=== PATIENT | female | born 1955 | race Caucasian/White ===

== ENCOUNTER 2019-12-01 08:02 | Outpatient (REF) | payer OTHER, SELFPAY ==
[2019-12-01 09:18] LABS: MANUAL DIFF FLAG NO
[2019-12-01 09:26] LABS: Basophils Percent Auto 0.4 % (0-2); Eosinophils Absolute Auto 0.1 X10*3/uL (0.0-0.4); Eosinophils Percent Auto 2.3 % (0-4); Hematocrit 36.7 % (37-47); Hemoglobin 12.4 g/dl (12.0-16.0); Imm Gran Abs Auto 0.01 X10*3/uL (0.00-0.03); Imm Gran Pct Auto 0.2 % (0.0-0.4); Lymphocytes Percent Auto 19.3 % (20-40); Mean Corpuscular HGB Conc 33.8 g/dl (31.0-35.0); Mean Corpuscular Hemoglobin 31.4 pg (27.0-33.0); Mean Corpuscular Volume 92.9 fL (80-98); Mean Platelet Volume 11.4 fL (9.4-12.3); Monocytes Absolute Auto 0.4 X10*3/uL (0.1-1.2); Monocytes Percent Auto 8.6 % (2-11); Neutrophils Absolute Auto 3.6 X10*3/uL (2.0-8.3); Neutrophils Percent Auto 69.2 % (45-73); Platelet Count 161 X10*3/uL (160-400); Red Blood Count 3.95 X10*6/uL (4.20-5.50); Red Cell Distribution Width 12.1 % (11.0-16.0); White Blood Count 5.1 X10*3/uL (4.8-10.8)
[2019-12-01 09:47] LABS: Alanine Aminotransferase 40 U/L (0-31); Albumin Level 4.1 g/dL (3.5-5.0); Alkaline Phosphatase 106 U/L (39-117); Anion Gap 11 (12-20); Aspartate Amino Transferase 27 U/L (5-31); Bilirubin Total 0.5 mg/dL (0.0-1.0); Blood Urea Nitrogen 36 mg/dL (9-16); Calcium 9.1 mg/dL (8.4-10.2); Carbon Dioxide 29 mmol/L (22-29); Chloride 104 mmol/L (96-108); Cholesterol 155 mg/dL; Estimated Glomerular Filt Rate 32; Glucose Fasting 296 mg/dL (60-99); HDL Cholesterol 35 mg/dL; LDL Cholesterol Calculated 89 mg/dl; Sodium 139 mmol/L (135-145); Total Protein 7.2 g/dL (6.5-8.0); Triglycerides 155 mg/dL
[2019-12-01 10:12] LABS: Free T4 (Free Thyroxine) 1.16 ng/dL (0.71-1.85); Thyroid Stimulating Hormone 2.72 mIU/mL (0.32-4.0); Vitamin D 25-OH Total 33.1 ng/mL (>30)
[2019-12-01 10:22] LABS: Creatinine Urine 93.53 mg/dL; Microalbum/Creatinine Ratio Ur 50.2 ug/mg cr
[2019-12-01 10:37] LABS: Glucose Urine UA 250 MG/DL (NEG); Leukocyte Esterase Urine NEG (NEG); Nitrite Urine NEG (NEG); PH 5.5 (5.0-8.0); Urine Blood NEG (NEG); Urine Ketones NEG (NEG); Urine Protein NEG (NEG-TRACE)
[2019-12-01 10:43] LABS: Appearance Urine CLEAR; Color Urine YELLOW
[2019-12-01 13:51] LABS: RBC Urine 0 /HPF (0); WBC Urine 0 /HPF (0-4)
== END 2019-12-01 08:03 | disposition home or self-care (01) ==
LOC: HO.LAB 08:02
PROVIDERS: PCP Internal Medicine; Visit Provider Internal Medicine
DX: E11.65 Type 2 diabetes mellitus with hyperglycemia (principal); E11.22 Type 2 diabetes mellitus with diabetic chronic kidney disease; I12.9 Hypertensive chronic kidney disease with stage 1 through stage 4 chronic kidney disease, or unspecified chronic kidney disease; N18.4 Chronic kidney disease, stage 4 (severe); E78.00 Pure hypercholesterolemia, unspecified; K76.0 Fatty (change of) liver, not elsewhere classified; E55.9 Vitamin D deficiency, unspecified
CPT/HCPCS: 36415; 80053; 80061; 81003; 81015; 82043; 82306; 84439; 84443; 85025

== ENCOUNTER → 2020-01-01 08:08 | Outpatient (BNVA) | payer OTHER, SELFPAY | PROVIDERS: PCP Internal Medicine; Referring Provider Internal Medicine; Visit Provider Internal Medicine | DX: E11.65 Type 2 diabetes mellitus with hyperglycemia (principal); E11.22 Type 2 diabetes mellitus with diabetic chronic kidney disease; I12.9 Hypertensive chronic kidney disease with stage 1 through stage 4 chronic kidney disease, or unspecified chronic kidney disease; N18.4 Chronic kidney disease, stage 4 (severe); E78.5 Hyperlipidemia, unspecified; I10 Essential (primary) hypertension; Z79.4 Long term (current) use of insulin | CPT/HCPCS: 99212 ==

== ENCOUNTER → 2020-01-21 09:24 | Outpatient (REF) | payer OTHER, SELFPAY ==
--- NOTE | 2020-01-21 09:30 | CA_ITS ---
Transthoracic Echocardiogram Patient (Last, First, Middle): Ann Cloud A Gender: Female Date of : 1955 Age: 64 Procedure Date: 01/21/2020 Procedure Type: Transthoracic Echocardiogram Location: OP Height: 167.64 cm Weight: 124.74 kg BSA: 2.29 m2 Heart Rate: bpm BP: 160 / 84 mmHg Day Care Assistant: Sloan MD: Fab Yeager MD Insulation Blanket Maker: Mono Peralta MD Symptoms: R06.00 - Dyspnea, unspecified Study Quality: Good ECG Rhythm: Sinus Conclusions: - 1. Normal LV systolic function with impaired relaxation filling pattern 2. Mild fibrocalcific aortic valve changes noted with normal cardiac valvular Doppler 3. No pericardial effusion Findings Left Ventricle Normal left ventricular size, thickness, and systolic function. The visually estimated ejection fraction is between 65-70%. Spectral Doppler is indicative of an impaired relaxation filling pattern. E/E prime ratio is between 8 and 15 consistent with indeterminate filling pressures. Right Ventricle Normal right ventricular cavity size and systolic function. Atria The left atrium is normal in size. There is lipomatous hypertrophy of the interatrial septum. There is a mobile atrial septum noted. There is no evidence of interatrial shunt. The right atrium is normal in size. Aortic Valve There is mild calcification of the aortic valve. There is no aortic valve stenosis. There is no aortic valve regurgitation. Mitral Valve Normal mitral valve structure and function. There is trace mitral valve regurgitation. There is no mitral valve stenosis. Pulmonic Valve The pulmonic valve is likely normal. Tricuspid Valve Normal tricuspid valve structure. Tricuspid regurgitation envelope is inadequate for calculation of right ventricular systolic pressure. Great Vessels All visible segments of the aorta are normal in size. The pulmonary artery was not well visualized. Small plaque is seen in the sino tubular ridge. Venous The inferior vena cava is normal in size and collapses greater than 50% with inspiration. Pericardium/Pleural There is no evidence of pericardial effusion. Prior Study Comparison No prior study available for comparison. Measurements 2D Linear Measurements RVIDd: 2.53 RVIDd Index: 1.10 IVSd: 0.90 0.6-0.9/0.6-1.0 cm LVIDd: 5.23 3.9-5.3/4.2-5.9 cm LVIDd Index: 2.28 2.4-3.2/2.2-3.1 cm/m2 LVIDs: 3.27 2.0-3.6 cm LVPWd: 1.11 0.7-1.1 cm Ao Root: 2.30 2.1-3.5 cm LA Diam: 4.50 2.7-3.8/3.0-4.0 cm LAIDs Index: 1.97 1.5-2.3 cm/m2 LV Mass: 245.09 67-162/88-224 g LV Mass Index: 107.03 43-95/49-115 g/m2 LVOT Diam: 2.00 3.0+(-)1.3 cm 2D Systolic Function EF 4C: 66.40 >55% EF 2C: 71.80 >55% EF BiP: 69.30 >55% Mitral Valve MV Pk E: 0.77 MV PK A: 0.98 MV Decel Time: 165.00 E/A: 0.80 E'Lateral: 8.70 E'Medial: 6.09 E/E' Med: 12.70 E/E' Lat: 8.90 Aortic Valve AoV Pk Ayden: 1.55 AoV Mn Ayden: 1.11 AoV VTI: 0.32 AoV Pk Grad: 10.00 Aov Mn Grad: 5.00 KAVEH Cont.VTI: 2.65 LVOT LVOT Pk Ayden: 1.17 LVOT Mn Ayden: 0.82 LVOT VTI: 0.27 LVOT Pk Grad: 5.00 LVOT Mn Grad: 3.00 LVOT Diam: 2.00 LVOT Area: 3.14 Diastolic Function MV Pk E: 0.77 MV Pk A: 0.98 E/A: 0.80 E'Medial: 6.09 E/E' Med: 12.70 E' Laterial: 8.70 E/E' Lat: 8.90 Tricuspid Valve RA Press: 3.00 Great Vessels Aorta Ao Root-2D: 2.30 2.0-3.7 cm Ao Asc: 2.80 2.1-3.4 cm Ao Arch: 2.50 Updated in Other Vendor System with Status of Final Mono Peralta MD electronically signed on 01/21/2020 1:00:38 PM with status of Final
--- NOTE | 2020-01-21 10:18 | XR_ITS ---
EXAMINATION: XR CHEST CLINICAL INFORMATION: Dyspnea COMPARISON: None TECHNIQUE: 2 views of the chest were obtained. FINDINGS: No significant abnormality is noted involving the heart, lungs, mediastinum, bony thorax or soft tissues. XR/XR chest 2V IMPRESSION: Unremarkable examination.
== END ==
LOC: HO.CARD 09:24
PROVIDERS: PCP Internal Medicine; Visit Provider Internal Medicine
DX: R06.00 Dyspnea, unspecified (principal)
CPT/HCPCS: 71046; 93306

== ENCOUNTER → 2020-01-29 15:32 | Outpatient (BNVA) | payer OTHER, SELFPAY | PROVIDERS: PCP Internal Medicine; Visit Provider Internal Medicine | DX: E11.65 Type 2 diabetes mellitus with hyperglycemia (principal); E11.22 Type 2 diabetes mellitus with diabetic chronic kidney disease; I12.9 Hypertensive chronic kidney disease with stage 1 through stage 4 chronic kidney disease, or unspecified chronic kidney disease; N18.4 Chronic kidney disease, stage 4 (severe); E78.5 Hyperlipidemia, unspecified; Z79.4 Long term (current) use of insulin | CPT/HCPCS: 82947; 99212 ==

== ENCOUNTER 2020-03-05 07:27 | Outpatient (REF) | payer OTHER, SELFPAY ==
[2020-03-05 08:03] LABS: Basophils Percent Auto 0.6 % (0-2); Eosinophils Absolute Auto 0.1 X10*3/uL (0.0-0.4); Eosinophils Percent Auto 1.9 % (0-4); Hematocrit 37.4 % (37-47); Hemoglobin 12.6 g/dl (12.0-16.0); Imm Gran Abs Auto 0.02 X10*3/uL (0.00-0.03); Imm Gran Pct Auto 0.3 % (0.0-0.4); Lymphocytes Absolute Auto 1.3 X10*3/uL (1.2-4.9); Lymphocytes Percent Auto 20.5 % (20-40); MANUAL DIFF FLAG NO; Mean Corpuscular HGB Conc 33.7 g/dl (31.0-35.0); Mean Corpuscular Hemoglobin 31.1 pg (27.0-33.0); Mean Corpuscular Volume 92.3 fL (80-98); Mean Platelet Volume 11.2 fL (9.4-12.3); Monocytes Absolute Auto 0.5 X10*3/uL (0.1-1.2); Monocytes Percent Auto 7.9 % (2-11); Neutrophils Absolute Auto 4.4 X10*3/uL (2.0-8.3); Neutrophils Percent Auto 68.8 % (45-73); Platelet Count 175 X10*3/uL (160-400); Red Blood Count 4.05 X10*6/uL (4.20-5.50); Red Cell Distribution Width 11.9 % (11.0-16.0); White Blood Count 6.4 X10*3/uL (4.8-10.8)
[2020-03-05 08:28] LABS: Alanine Aminotransferase 31 U/L (0-31); Alkaline Phosphatase 105 U/L (39-117); Anion Gap 11 (12-20); Aspartate Amino Transferase 24 U/L (5-31); Bilirubin Total 0.3 mg/dL (0.0-1.0); Blood Urea Nitrogen 31 mg/dL (9-16); Calcium 8.6 mg/dL (8.4-10.2); Carbon Dioxide 29 mmol/L (22-29); Chloride 103 mmol/L (96-108); Cholesterol 148 mg/dL; Estimated Glomerular Filt Rate 34; Glucose Fasting 205 mg/dL (60-99); HDL Cholesterol 40 mg/dL; LDL Cholesterol Calculated 82 mg/dl; Sodium 138 mmol/L (135-145); Total Protein 7.1 g/dL (6.5-8.0); Triglycerides 132 mg/dL
[2020-03-05 08:38] LABS: Glucose Urine UA NEG (NEG); Leukocyte Esterase Urine NEG (NEG); Nitrite Urine NEG (NEG); Urine Blood TRACE (NEG); Urine Ketones NEG (NEG); Urine Protein NEG (NEG-TRACE)
[2020-03-05 08:43] LABS: Appearance Urine CLEAR; Color Urine YELLOW
[2020-03-05 08:45] LABS: RBC Urine 0-2 /HPF (0); Squamous Epithelial Cell Urine 1+ /LPF; WBC Urine 0-2 /HPF (0-4)
[2020-03-05 08:51] LABS: Free T4 (Free Thyroxine) 1.17 ng/dL (0.71-1.85); Thyroid Stimulating Hormone 3.61 uIU/mL (0.32-4.0); Vitamin D 25-OH Total 37.9 ng/mL (>30)
[2020-03-05 09:26] LABS: Creatinine Urine 98.32 mg/dL; Microalbum/Creatinine Ratio Ur 16.2 ug/mg cr
== END 2020-03-05 07:28 | disposition home or self-care (01) ==
LOC: HO.LAB 07:27
PROVIDERS: PCP Internal Medicine; Visit Provider Internal Medicine
DX: E11.22 Type 2 diabetes mellitus with diabetic chronic kidney disease (principal); I12.9 Hypertensive chronic kidney disease with stage 1 through stage 4 chronic kidney disease, or unspecified chronic kidney disease; N18.4 Chronic kidney disease, stage 4 (severe); E03.9 Hypothyroidism, unspecified; E78.5 Hyperlipidemia, unspecified; E55.9 Vitamin D deficiency, unspecified
CPT/HCPCS: 36415; 80053; 80061; 81001; 82043; 82306; 84439; 84443; 85025

== ENCOUNTER → 2020-04-16 09:25 | Outpatient (BNVA) | payer OTHER, SELFPAY | PROVIDERS: PCP Internal Medicine; Visit Provider Dietitian, Registered ==

== ENCOUNTER 2020-04-28 07:25 | Outpatient (REF) | payer OTHER, SELFPAY ==
[2020-04-28 08:26] LABS: Estimated Average Glucose 186 mg/dL; Hemoglobin A1c % 8.1 %
[2020-04-28 08:44] LABS: Alanine Aminotransferase 26 U/L (0-31); Albumin Level 4.1 g/dL (3.5-5.0); Alkaline Phosphatase 107 U/L (39-117); Anion Gap 12 (12-20); Aspartate Amino Transferase 27 U/L (5-31); Bilirubin Total 0.6 mg/dL (0.0-1.0); Blood Urea Nitrogen 40 mg/dL (9-16); Calcium 9.4 mg/dL (8.4-10.2); Carbon Dioxide 29 mmol/L (22-29); Chloride 101 mmol/L (96-108); Cholesterol 166 mg/dL; Creatinine Urine 79.13 mg/dL; Estimated Glomerular Filt Rate 32; Glucose Random 192 mg/dL (60-115); HDL Cholesterol 41 mg/dL; LDL Cholesterol Calculated 96 mg/dl; Potassium 4.6 mmol/L (3.3-5.1); Sodium 137 mmol/L (135-145); Total Protein 7.4 g/dL (6.5-8.0); Triglycerides 146 mg/dL
[2020-04-29 06:31] LABS: LDL Cholesterol Direct 96 mg/dL (<100)
== END 2020-04-28 07:26 | disposition home or self-care (01) ==
LOC: HO.LAB 07:25
PROVIDERS: Absent Provider Internal Medicine; PCP Internal Medicine; Visit Provider Internal Medicine
DX: E11.65 Type 2 diabetes mellitus with hyperglycemia (principal); Z79.4 Long term (current) use of insulin
CPT/HCPCS: 36415; 80053; 80061; 82043; 83036; 83721

== ENCOUNTER → 2020-05-05 07:42 | Outpatient (BNVA) | payer OTHER, SELFPAY | PROVIDERS: PCP Internal Medicine; Visit Provider Nurse Practitioner Gerontology ==

== ENCOUNTER 2020-09-06 08:09 | Outpatient (REF) | payer OTHER, SELFPAY ==
[2020-09-06 08:59] LABS: MANUAL DIFF FLAG NO
[2020-09-06 09:11] LABS: Basophils Percent Auto 0.6 % (0-2); Eosinophils Absolute Auto 0.1 X10*3/uL (0.0-0.4); Eosinophils Percent Auto 1.8 % (0-4); Hematocrit 36.5 % (37-47); Hemoglobin 12.3 g/dl (12.0-16.0); Imm Gran Abs Auto 0.02 X10*3/uL (0.00-0.03); Imm Gran Pct Auto 0.3 % (0.0-0.4); Lymphocytes Absolute Auto 1.5 X10*3/uL (1.2-4.9); Lymphocytes Percent Auto 22.9 % (20-40); Mean Corpuscular HGB Conc 33.7 g/dl (31.0-35.0); Mean Corpuscular Hemoglobin 30.7 pg (27.0-33.0); Mean Platelet Volume 11.5 fL (9.4-12.3); Monocytes Absolute Auto 0.6 X10*3/uL (0.1-1.2); Monocytes Percent Auto 8.8 % (2-11); Neutrophils Absolute Auto 4.4 X10*3/uL (2.0-8.3); Neutrophils Percent Auto 65.6 % (45-73); Platelet Count 170 X10*3/uL (160-400); Red Blood Count 4.01 X10*6/uL (4.20-5.50); Red Cell Distribution Width 12.1 % (11.0-16.0); White Blood Count 6.7 X10*3/uL (4.8-10.8)
[2020-09-06 09:23] LABS: Alanine Aminotransferase 24 U/L (0-31); Alkaline Phosphatase 99 U/L (39-117); Anion Gap 15 (12-20); Aspartate Amino Transferase 27 U/L (5-31); Bilirubin Total 0.7 mg/dL (0.0-1.0); Blood Urea Nitrogen 40 mg/dL (9-16); Calcium 9.4 mg/dL (8.4-10.2); Carbon Dioxide 25 mmol/L (22-29); Chloride 104 mmol/L (96-108); Cholesterol 162 mg/dL; Estimated Glomerular Filt Rate 29; Glucose Fasting 152 mg/dL (60-99); HDL Cholesterol 38 mg/dL; LDL Cholesterol Calculated 91 mg/dl; Sodium 139 mmol/L (135-145); Total Protein 7.3 g/dL (6.5-8.0); Triglycerides 167 mg/dL
[2020-09-06 09:40] LABS: Glucose Urine UA NEG (NEG); Leukocyte Esterase Urine NEG (NEG); Nitrite Urine NEG (NEG); PH 5.5 (5.0-8.0); Specific Gravity - Urine 1.015 (1.005-1.025); Urine Blood TRACE (NEG); Urine Ketones NEG (NEG); Urine Protein NEG (NEG-TRACE)
[2020-09-06 09:42] LABS: Appearance Urine CLEAR; Color Urine YELLOW
[2020-09-06 09:47] LABS: Free T4 (Free Thyroxine) 1.09 ng/dL (0.71-1.85); Thyroid Stimulating Hormone 4.59 uIU/mL (0.32-4.0); Vitamin D 25-OH Total 30.2 ng/mL (>30)
[2020-09-06 09:53] LABS: RBC Urine 0 /HPF (0); WBC Urine 0-2 /HPF (0-4)
[2020-09-06 09:54] LABS: Bacteria Urine TRACE /LPF; Renal Epithelial Cells Urine TRACE /LPF; Squamous Epithelial Cell Urine 1+ /LPF
[2020-09-06 10:15] LABS: Creatinine Urine 78.68 mg/dL; Microalbumin Urine < 5.0 mg/L
== END 2020-09-06 08:10 | disposition home or self-care (01) ==
LOC: HO.LAB 08:09
PROVIDERS: Absent Provider Internal Medicine; PCP Internal Medicine; Visit Provider Internal Medicine
DX: I12.9 Hypertensive chronic kidney disease with stage 1 through stage 4 chronic kidney disease, or unspecified chronic kidney disease (principal); E11.22 Type 2 diabetes mellitus with diabetic chronic kidney disease; N18.4 Chronic kidney disease, stage 4 (severe); E78.00 Pure hypercholesterolemia, unspecified; E03.9 Hypothyroidism, unspecified; E55.9 Vitamin D deficiency, unspecified; E66.01 Morbid (severe) obesity due to excess calories; Z68.42 Body mass index [BMI] 45.0-49.9, adult; Z79.4 Long term (current) use of insulin
CPT/HCPCS: 36415; 80053; 80061; 81001; 82043; 82306; 84439; 84443; 85025

== ENCOUNTER → 2020-09-09 07:58 | Outpatient (BNVA) | payer OTHER, SELFPAY | PROVIDERS: PCP Internal Medicine; Visit Provider Nurse Practitioner Gerontology | DX: E11.65 Type 2 diabetes mellitus with hyperglycemia (principal); E11.22 Type 2 diabetes mellitus with diabetic chronic kidney disease; I12.9 Hypertensive chronic kidney disease with stage 1 through stage 4 chronic kidney disease, or unspecified chronic kidney disease; N18.4 Chronic kidney disease, stage 4 (severe); E78.00 Pure hypercholesterolemia, unspecified; E03.9 Hypothyroidism, unspecified; E66.01 Morbid (severe) obesity due to excess calories; Z79.4 Long term (current) use of insulin; Z68.42 Body mass index [BMI] 45.0-49.9, adult | CPT/HCPCS: 82947; 99212 ==

== ENCOUNTER 2021-01-11 07:13 | Outpatient (REF) | payer OTHER, SELFPAY ==
[2021-01-11 08:38] LABS: Free T4 (Free Thyroxine) 1.13 ng/dL (0.71-1.85); Thyroid Stimulating Hormone 4.99 uIU/mL (0.32-4.0)
[2021-01-12 21:17] LABS: Thyroglobulin Antibodies >1000 IU/mL (< or = 1); Thyroid Peroxidase Antibodies 647 IU/mL (<9)
== END 2021-01-11 07:14 | disposition home or self-care (01) ==
LOC: HO.LAB 07:13
PROVIDERS: PCP Internal Medicine; Visit Provider Nurse Practitioner Gerontology
DX: E03.9 Hypothyroidism, unspecified (principal)
CPT/HCPCS: 36415; 84439; 84443; 86376; 86800

== ENCOUNTER → 2021-01-18 13:21 | Outpatient (BNVA) | payer OTHER, SELFPAY | PROVIDERS: PCP Internal Medicine; Visit Provider Nurse Practitioner Gerontology | DX: E11.65 Type 2 diabetes mellitus with hyperglycemia (principal); E11.22 Type 2 diabetes mellitus with diabetic chronic kidney disease; I12.9 Hypertensive chronic kidney disease with stage 1 through stage 4 chronic kidney disease, or unspecified chronic kidney disease; N18.4 Chronic kidney disease, stage 4 (severe); E78.00 Pure hypercholesterolemia, unspecified; E66.01 Morbid (severe) obesity due to excess calories; E03.9 Hypothyroidism, unspecified; E06.3 Autoimmune thyroiditis; Z79.4 Long term (current) use of insulin; Z68.42 Body mass index [BMI] 45.0-49.9, adult | CPT/HCPCS: 82947; 83036 ==

== ENCOUNTER 2021-03-03 07:17 | Outpatient (REF) | payer OTHER, SELFPAY ==
[2021-03-03 08:35] LABS: Free T4 (Free Thyroxine) 1.02 ng/dL (0.71-1.85); Thyroid Stimulating Hormone 4.56 uIU/mL (0.32-4.0)
== END 2021-03-03 07:18 | disposition home or self-care (01) ==
LOC: HO.LAB 07:17
PROVIDERS: PCP Internal Medicine; Visit Provider Nurse Practitioner Gerontology
DX: E03.9 Hypothyroidism, unspecified (principal)
CPT/HCPCS: 36415; 84439; 84443

== ENCOUNTER 2021-04-20 07:18 | Outpatient (REF) | payer OTHER, SELFPAY ==
[2021-04-20 08:44] LABS: Free T4 (Free Thyroxine) 1.03 ng/dL (0.71-1.85); Thyroid Stimulating Hormone 4.55 uIU/mL (0.32-4.0)
== END 2021-04-20 07:19 | disposition home or self-care (01) ==
LOC: HO.LAB 07:18
PROVIDERS: PCP Internal Medicine; Visit Provider Nurse Practitioner Gerontology
DX: E03.9 Hypothyroidism, unspecified (principal)
CPT/HCPCS: 36415; 84439; 84443

== ENCOUNTER 2021-06-09 06:56 | Outpatient (REF) | payer OTHER, SELFPAY ==
[2021-06-09 07:08] LABS: MANUAL DIFF FLAG NO
[2021-06-09 07:31] LABS: Basophils Absolute Auto 0.1 X10*3/uL (0.0-0.2); Basophils Percent Auto 0.8 % (0-2); Eosinophils Absolute Auto 0.1 X10*3/uL (0.0-0.4); Hematocrit 35.6 % (37.0-47.0); Hemoglobin 11.8 g/dl (12.0-16.0); Imm Gran Abs Auto 0.02 X10*3/uL (0.00-0.03); Imm Gran Pct Auto 0.3 % (0.0-0.4); Lymphocytes Absolute Auto 1.4 X10*3/uL (1.2-4.9); Lymphocytes Percent Auto 21.3 % (20-40); Mean Corpuscular HGB Conc 33.1 g/dl (31.0-35.0); Mean Corpuscular Volume 93.4 fL (80.0-98.0); Mean Platelet Volume 11.7 fL (9.4-12.3); Monocytes Absolute Auto 0.6 X10*3/uL (0.1-1.2); Monocytes Percent Auto 8.6 % (2-11); Neutrophils Absolute Auto 4.3 x10*3/uL (2.0-8.3); Platelet Count 155 X10*3/uL (160-400); Red Blood Count 3.81 X10*6/uL (4.20-5.50); Red Cell Distribution Width 12.6 % (11.0-16.0); White Blood Count 6.4 X10*3/uL (4.8-10.8)
[2021-06-09 08:06] LABS: Alanine Aminotransferase 26 U/L (0-31); Albumin Level 3.9 g/dL (3.5-5.0); Alkaline Phosphatase 105 U/L (39-117); Anion Gap 14 (12-20); Aspartate Amino Transferase 27 U/L (5-31); Bilirubin Total 0.5 mg/dL (0.0-1.0); Blood Urea Nitrogen 36 mg/dL (9-16); Calcium 9.6 mg/dL (8.4-10.2); Carbon Dioxide 25 mmol/L (22-29); Chloride 105 mmol/L (96-108); Cholesterol 149 mg/dL; Estimated Glomerular Filt Rate 32; Glucose Fasting 167 mg/dL (60-99); HDL Cholesterol 43 mg/dL; LDL Cholesterol Calculated 82 mg/dl; Potassium 4.9 mmol/L (3.3-5.1); Sodium 139 mmol/L (135-145); Triglycerides 123 mg/dL
[2021-06-09 08:10] LABS: Appearance Urine CLEAR; Color Urine YELLOW; Glucose Urine UA NEG (NEG); Leukocyte Esterase Urine NEG (NEG); Nitrite Urine NEG (NEG); PH 5.5 (5.0-8.0); Specific Gravity - Urine 1.025 (1.005-1.025); UACC Culture Trigger NO; Urine Blood TRACE (NEG); Urine Ketones NEG (NEG); Urine Protein NEG (NEG-TRACE)
[2021-06-09 08:13] LABS: Free T4 (Free Thyroxine) 1.19 ng/dL (0.71-1.85)
[2021-06-09 08:15] LABS: Thyroid Stimulating Hormone 1.85 uIU/mL (0.32-4.0); Vitamin D 25-OH Total 30.4 ng/mL (>30)
[2021-06-09 08:27] LABS: Creatinine Urine 115.05 mg/dL; Microalbum/Creatinine Ratio Ur 18.2 ug/mg cr
[2021-06-09 08:35] LABS: Squamous Epithelial Cell Urine 1+ /LPF
[2021-06-09 08:37] LABS: RBC Urine 0 /HPF (0)
== END 2021-06-09 06:57 | disposition home or self-care (01) ==
LOC: HO.LAB 06:56
PROVIDERS: Absent Provider Nurse Practitioner Gerontology; PCP Internal Medicine; Visit Provider Internal Medicine
DX: E78.00 Pure hypercholesterolemia, unspecified (principal); E11.9 Type 2 diabetes mellitus without complications; I10 Essential (primary) hypertension; E55.9 Vitamin D deficiency, unspecified; E03.9 Hypothyroidism, unspecified
CPT/HCPCS: 36415; 80053; 80061; 81001; 82043; 82306; 84439; 84443; 85025

== ENCOUNTER 2021-12-05 06:50 | Outpatient (REF) | payer OTHER, SELFPAY ==
[2021-12-05 07:16] LABS: MANUAL DIFF FLAG NO
[2021-12-05 07:33] LABS: Basophils Percent Auto 0.7 % (0-2); Eosinophils Absolute Auto 0.2 X10*3/uL (0.0-0.4); Eosinophils Percent Auto 2.7 % (0-4); Hematocrit 34.2 % (37.0-47.0); Hemoglobin 11.3 g/dl (12.0-16.0); Imm Gran Abs Auto 0.02 X10*3/uL (0.00-0.03); Imm Gran Pct Auto 0.4 % (0.0-0.4); Lymphocytes Absolute Auto 1.2 X10*3/uL (1.2-4.9); Lymphocytes Percent Auto 22.3 % (20-40); Mean Corpuscular Hemoglobin 30.5 pg (27.0-33.0); Mean Corpuscular Volume 92.4 fL (80.0-98.0); Mean Platelet Volume 10.6 fL (9.4-12.3); Monocytes Absolute Auto 0.4 X10*3/uL (0.1-1.2); Monocytes Percent Auto 7.7 % (2-11); Neutrophils Absolute Auto 3.6 x10*3/uL (2.0-8.3); Neutrophils Percent Auto 66.2 % (45-73); Platelet Count 203 X10*3/uL (160-400); Red Cell Distribution Width 12.7 % (11.0-16.0); White Blood Count 5.5 X10*3/uL (4.8-10.8)
[2021-12-05 07:48] LABS: Estimated Average Glucose 163 mg/dL; Hemoglobin A1c % 7.3 %
[2021-12-05 07:54] LABS: Anion Gap 15 (12-20); Blood Urea Nitrogen 31 mg/dL (9-16); Calcium 9.4 mg/dL (8.4-10.2); Carbon Dioxide 26 mmol/L (22-29); Chloride 105 mmol/L (96-108); Estimated Glomerular Filt Rate 33; Potassium 4.6 mmol/L (3.3-5.1); Sodium 141 mmol/L (135-145); Uric Acid 8.2 mg/dL (2.4-5.7)
[2021-12-05 07:58] LABS: Alanine Aminotransferase 19 U/L (0-31); Albumin Level 3.9 g/dL (3.5-5.0); Alkaline Phosphatase 106 U/L (39-117); Anion Gap 15 (12-20); Aspartate Amino Transferase 20 U/L (5-31); Bilirubin Total 0.5 mg/dL (0.0-1.0); Blood Urea Nitrogen 32 mg/dL (9-16); Calcium 9.4 mg/dL (8.4-10.2); Carbon Dioxide 25 mmol/L (22-29); Chloride 106 mmol/L (96-108); Cholesterol 147 mg/dL; Estimated Glomerular Filt Rate 33; Glucose Fasting 158 mg/dL (60-99); HDL Cholesterol 39 mg/dL; LDL Cholesterol Calculated 81 mg/dl; Potassium 4.9 mmol/L (3.3-5.1); Sodium 141 mmol/L (135-145); Total Protein 7.3 g/dL (6.5-8.0); Triglycerides 135 mg/dL
[2021-12-05 08:03] LABS: Appearance Urine Clear; Color Urine Yellow; Glucose Urine UA Negative (Negative); Leukocyte Esterase Urine Negative (Negative); Nitrite Urine Negative (Negative); Urine Blood Negative (Negative); Urine Ketones Negative (Negative); Urine Protein Negative (Neg-Trace)
[2021-12-05 08:08] LABS: Creatinine Urine 117.18 mg/dL; Microalbum/Creatinine Ratio Ur 40.9 ug/mg cr
[2021-12-05 08:09] LABS: Creatinine Urine 118.69 mg/dL; Protein/Creatinine Ratio, Ur 0.12 (<0.2); Total Protein Urine Random 14 mg/dL (<12)
[2021-12-05 08:21] LABS: Free T4 (Free Thyroxine) 1.16 ng/dL (0.71-1.85); Thyroid Stimulating Hormone 3.58 uIU/mL (0.32-4.0); Vitamin D 25-OH Total 32.6 ng/mL (>30)
[2021-12-06 10:46] LABS: Calcium (PTHI) 9.5 mg/dL (8.6-10.4); PTHI 103 pg/mL (16-77)
== END 2021-12-05 06:51 | disposition home or self-care (01) ==
LOC: HO.LAB 06:50
PROVIDERS: Absent Provider Internal Medicine; PCP Internal Medicine; Visit Provider Physician Assistant
DX: E11.22 Type 2 diabetes mellitus with diabetic chronic kidney disease (principal); I12.9 Hypertensive chronic kidney disease with stage 1 through stage 4 chronic kidney disease, or unspecified chronic kidney disease; N18.32 Chronic kidney disease, stage 3b; E55.9 Vitamin D deficiency, unspecified; E03.9 Hypothyroidism, unspecified; E78.00 Pure hypercholesterolemia, unspecified
CPT/HCPCS: 36415; 80051; 80053; 80061; 81003; 82043; 82306; 82310; 82565; 83036; 83970; 84156; 84439; 84443; 84520; 84550; 85025

== ENCOUNTER 2022-01-09 13:20 | Outpatient (AMB) | payer OTHER, SELFPAY ==
[2022-01-09 13:29] VITALS: BP 132/78; PULSE 82; TEMP 36; O2SAT 97; BMI 44.4
--- NOTE | 2022-01-09 13:29 | MHC.PC.OV ---
Vital Signs 01/09/22 13:29 Height 5 ft 6 in Weight 275 lb BMI 44.4 BP 132/78 Blood Pressure Location Lt radial Position Sitting Pulse 82 Pulse Source Pulse Oximeter Temp 96.8 F Temp Source Skin Pulse Oximetry (%) 97 Oxygen Delivery Method Room Air Intake Visit Reasons: DM, CKD, HTN, hyperlipidemia Intake Note: Patient is here for a follow up on DM, CKD, HTN and Hyperlipidemia. Park Interpretive Ranger Required: No Accompanied by: Self / Same As Patient Allergies glyburide Adverse Reaction (Intermediate, Verified 10/13/22 10:27) weight gain pioglitazone Adverse Reaction (Intermediate, Verified 10/13/22 10:27) weight gain Medication List - Last Reconciled 01/09/22 by Fab Yeager MD amlodipine 2.5 mg PO DAILY 90 days atenolol 100 mg (2 x 50 mg) PO DAILY 90 days atorvastatin 20 mg PO DAILY blood sugar diagnostic As directed blood sugar diagnostic (FreeStyle Lite Strips) As directed 4 times a day cholecalciferol (vitamin D3) 50 mcg PO DAILY dulaglutide (Trulicity) 3 mg (0.5 mL) subcut QWEEK 28 days flash glucose scanning reader (FreeStyle Bj 14 Day [place]) As directed flash glucose sensor (FreeStyle Bj 14 Day Sensor kit) Once every 14 days lancets (FreeStyle Lancets) 4 times a day Lantus Solostar U-100 Insulin (insulin glargine) 20 units (0.2 mL) subcut BEDTIME 30 days NS levothyroxine 88 mcg PO DAILY lisinopril-hydrochlorothiazide 20-25 mg 1 tab PO DAILY pen needle, diabetic (BD Josefina 2nd Gen Pen Needle) As directed pen needle, diabetic (BD Ultra-Fine Micro Pen Needle) 1 ea subcut DAILY Tobacco use date assessed: 09/02/21 Fall risk assessment: No Falls in past year Last assessed Fall Risk: 01/09/22 HPI DM, CKD, HTN, hyperlipidemia HPI Details Patient comes in today for her follow up visit States that she feels okay but has been experiencing frequent multiple joint pains lately Has also been experiencing recurrent cough and chest congestion for a few weeks now; coughs up whitish phlegm at times and reports that her chest would sometime feel congested to the point where she has some SOB but these tend to last for just a short while She denies any fever or sore throat Denies any headaches or dizziness Denies any chest pains, no increased SOB lately No nausea/vomiting, no abdominal pain No change in bowel habits noted Had her follow up labs done last month - to discuss her results [facility] Medical History Acquired hypothyroidism Benign essential hypertension Body mass index (BMI) of 40.0 to 49.9 Chronic kidney disease (CKD), stage III (moderate) Chronic kidney disease, stage 4 (severe) Exertional dyspnea Oscar's disease HLD (hyperlipidemia) HTN (hypertension) Morbid obesity with BMI of 40.0-44.9, adult Morbid obesity with BMI of 45.0-49.9, adult Nonalcoholic hepatosteatosis Obesity, unspecified Pure hypercholesterolemia Type 2 diabetes mellitus with diabetic chronic kidney disease Vitamin D deficiency Surgical History History of laparoscopy Family History Father CVD (cardiovascular disease) Stroke Hypertension Mother Hypertension Stroke Diabetes Cancer Brother Cancer Social History Household Members: Children Household Members Other:: son Housing: House Alcohol intake: never Patient Tobacco Use Status: Never used Tobacco e-Cigarette/Vaping Use: Never Used Second Hand Smoke Exposure: Yes service: No Current occupational status: employed Cognitive needs: No Hearing needs: No Vision needs: Yes Questionnaire Thrive Questionnaire Date Thrive assessed: 09/02/21 SILVESTRE-7 AMB Questionnaire SILVESTRE-7 Date SILVESTRE - 7 assessed: 09/02/21 Source: Developed by Drs. Nato Romero, Paola Burnett, Shiraz Romo and colleagues, with an educational daksha from [employer]. Review of Systems Const Denies chills, Reports fatigue, Denies fever(s) and Denies headache(s) ENT Denies dysphagia, Denies dizziness, Denies otalgia, Denies headache(s), Reports hearing loss (left ear), Denies nasal congestion and Denies sore throat Card Denies chest pain, Denies palpitations and Reports dyspnea (at times) Resp Reports chest congestion, Reports cough (coughs up whitish phlegm at times), Reports dyspnea (at times) and Denies wheezing GI Denies abdominal pain, Denies constipation, Denies dysphagia, Denies heartburn, Denies diarrhea, Denies nausea and Denies vomiting Denies difficulty voiding, Denies dysuria, Denies urinary incontinence and Denies urinary urgency Musc Reports arthralgias (increasing lately) Skin/Breast Details: (+) wound on the left big toe Denies rash Neuro Denies dizziness and Denies headache(s) Endo Reports fatigue and Denies palpitations Aller/Immun Denies wheezing Physical exam (Primary Care) Vital Signs: Last Vital Signs Temp 96.8 F 01/09/22 13:29 Pulse 82 01/09/22 13:29 BP 132/78 01/09/22 13:29 Pulse Ox 97 01/09/22 13:29 Oxygen Delivery Method Room Air 01/09/22 13:29 BMI result Body Mass Index 44.4 Tobacco/Smoking Status: Tobacco use Status Tobacco use date assessed 09/02/21 01/09/22 13:35 Patient Tobacco Use Status Never used Tobacco 01/09/22 13:35 Thrive Assessment: Date of Thrive Assessment Date Thrive assessed 09/02/21 01/09/22 13:35 Const General: no acute distress and alert HENMT Ears: TM's normal bilaterally and EAC's normal Throat: Yes posterior oropharynx normal and Yes tonsils normal (no TP congestion) Neck Neck: Yes no lymphadenopathy and Yes supple Resp Auscultation: clear to auscultation bilaterally (otherwise), no rales, rhonchi (occasional) and no wheezes Cardio Rate: regular rate Rhythm: regular rhythm Heart sounds: no murmurs GI Palpation (GI): Soft to palpation and nontender Auscultation: normal bowel sounds Skin Rashes: no rashes Extrem General: Yes no clubbing, cyanosis or edema Results Reviewed Results Reviewed: Laboratory Tests 12/05/21 12/05/21 12/05/21 07:06 07:06 07:14 WBC Hgb Hct Plt Count Sodium 141 Potassium 4.9 Creatinine 1.58 H Estimated GFR 33 Fasting Glucose 158 H Hemoglobin A1c % Uric Acid Calcium 9.4 AST 20 ALT 19 Triglycerides 135 Cholesterol 147 LDL Cholesterol, Calc 81 HDL Cholesterol 39 25-OH Vitamin D Total 32.6 TSH 3.58 Free T4 1.16 PTH Intact Calcium (PTH Intact) Ur Specific [place] 1.020 Urine Protein Negative Urine Glucose (UA) Negative Microalb/Creat Ratio 40.9 12/05/21 12/05/21 12/05/21 07:14 07:14 07:14 WBC 5.5 Hgb 11.3 L Hct 34.2 L Plt Count 203 D Sodium Potassium Creatinine Estimated GFR Fasting Glucose Hemoglobin A1c % 7.3 Uric Acid 8.2 H Calcium AST ALT Triglycerides Cholesterol LDL Cholesterol, Calc HDL Cholesterol 25-OH Vitamin D Total TSH Free T4 PTH Intact Calcium (PTH Intact) Ur Specific [place] Urine Protein Urine Glucose (UA) Microalb/Creat Ratio 12/05/21 07:14 WBC Hgb Hct Plt Count Sodium Potassium Creatinine Estimated GFR Fasting Glucose Hemoglobin A1c % Uric Acid Calcium AST ALT Triglycerides Cholesterol LDL Cholesterol, Calc HDL Cholesterol 25-OH Vitamin D Total TSH Free T4 PTH Intact 103 H Calcium (PTH Intact) 9.5 Ur Specific [place] Urine Protein Urine Glucose (UA) Microalb/Creat Ratio Assessment and Plan Assessment & Plan (1) Type 2 diabetes mellitus with diabetic chronic kidney disease: Code(s): E11.22 - Type 2 diabetes mellitus with diabetic chronic kidney disease Qualifiers: Chronic kidney disease stage: stage 4 (severe) Diabetes mellitus fci insulin use: with intermediate accountant use Qualified Code(s): E11.22 - Type 2 diabetes mellitus with diabetic chronic kidney disease; N18.4 - Chronic kidney disease, stage 4 (severe); Z79.4 - correction (current) use of insulin Plan: HgbA1c was at 7.3% on her labs done last week (in-office HgbA1c was at 7.4% a few months ago) - goal is < 7.0% Reinforced diabetic diet Continue Trulicity 3 mg SQ once a week and Lantus Solostar 20 units Q HS Follow up with endocrinology as scheduled (2) Chronic kidney disease (CKD), stage III (moderate): Code(s): N18.30 - Chronic kidney disease, stage 3 unspecified Qualifiers: Chronic kidney disease stage 3 subtype: stage 3b (GFR 30-44) Qualified Code(s): N18.32 - Chronic kidney disease, stage 3b Plan: Reinforced that the goal is to slow down the progression of her CKD Based on her recent labs, she is still somewhere between stage 3b and stage 4 and her renal function has been stable lately Emphasized again the importance of tight BP control and strict glycemic control in light of her advanced CKD Follow up with nephrology (Dr. Newton Braker) as scheduled (3) Benign essential hypertension: Code(s): I10 - Essential (primary) hypertension Plan: Reinforced low sodium diet - goal is systolic BP of 120 mm or less, in light of her CKD Continue Linisopril-HCT 20-25 mg QD, Amlodipine 2.5 mg QD and Atenolol 100 mg QD (4) Pure hypercholesterolemia: Code(s): E78.00 - Pure hypercholesterolemia, unspecified Plan: Results of her labs done last month reviewed and discussed with patient Reinforced low cholesterol diet Continue Atorvastatin 20 mg QD Will recheck fasting lipids and labs in 4 months for follow up (5) Acquired hypothyroidism: Code(s): E03.9 - Hypothyroidism, unspecified Plan: Previous tests included (+) TPO Ab and Thyroglobulin Ab, consistent with Oscar's thyroiditis TFTs done last month came back normal Continue Levothyroxine 88 mcg QD Will recheck TFTs in 4 months for follow up Follow up with endocrinology as scheduled (6) Cough: Code(s): R05.9 - Cough, unspecified Qualifiers: Cough type: unspecified Qualified Code(s): R05.9 - Cough, unspecified Plan: Patient is reassured that her lungs sound okay today and that her recent respiratory symptoms may be due to allergies Will send her for chest x-rays TYE for further evaluation (7) Vitamin D deficiency: Code(s): E55.9 - Vitamin D deficiency, unspecified Plan: Continue Vitamin D3 2000 units QD (8) Morbid obesity with BMI of 40.0-44.9, adult: Code(s): E66.01 - Morbid (severe) obesity due to excess calories; Z68.41 - Body mass index [BMI] 40.0-44.9, adult Plan: Reinforced diet/exercise as tolerated/lose weight Plan Follow up in 4 months Orders: Orders XR chest 2V 01/10/22 R05.9 - Cough, unspecified Complete Blood Count Auto Diff 4 Months I10 - Essential (primary) hypertension Comprehensive [place]. Panel Fast 4 Months E78.00 - Pure hypercholesterolemia, unspecified Microalbumin, Random (w Creat) 4 Months E11.9 - Type 2 diabetes mellitus without complications UA CC w/rflx Micro + Cult 4 Months R30.0 - Dysuria Hemoglobin A1c 4 Months E11.9 - Type 2 diabetes mellitus without complications Lipid Panel 4 Months E78.00 - Pure hypercholesterolemia, unspecified Free T4 (Free Thyroxine) 4 Months E03.9 - Hypothyroidism, unspecified Thyroid Stimulating Hormone 4 Months E03.9 - Hypothyroidism, unspecified Uric Acid 4 Months M10.9 - Gout, unspecified Vitamin D 25-OH Total 4 Months E55.9 - Vitamin D deficiency, unspecified Coding Level of Care Code Est Pt Level 4 (05604) Diagnoses Type 2 diabetes mellitus with diabetic chronic kidney disease E11.22; N18.4; Z79.4 Chronic kidney disease stage: stage 4 (severe) Diabetes mellitus intermediate accountant insulin use: with fci use Chronic kidney disease (CKD), stage III (moderate) N18.32 Chronic kidney disease stage 3 subtype: stage 3b (GFR 30-44) Benign essential hypertension I10 Pure hypercholesterolemia E78.00 Acquired hypothyroidism E03.9 Cough R05.9 Cough type: unspecified Vitamin D deficiency E55.9 Morbid obesity with BMI of 40.0-44.9, adult E66.01; Z68.41
== END 2022-01-09 14:37 | disposition home or self-care (01) ==
LOC: HO.HMGH 13:20
PROVIDERS: PCP Internal Medicine; Visit Provider Internal Medicine
DX: E11.22 Type 2 diabetes mellitus with diabetic chronic kidney disease (principal); N18.4 Chronic kidney disease, stage 4 (severe); Z79.4 Long term (current) use of insulin; N18.32 Chronic kidney disease, stage 3b; I12.9 Hypertensive chronic kidney disease with stage 1 through stage 4 chronic kidney disease, or unspecified chronic kidney disease; E78.00 Pure hypercholesterolemia, unspecified; E03.9 Hypothyroidism, unspecified; R05.9 Cough, unspecified; E55.9 Vitamin D deficiency, unspecified; E66.01 Morbid (severe) obesity due to excess calories; Z68.41 Body mass index [BMI] 40.0-44.9, adult
CPT/HCPCS: 99214

== ENCOUNTER 2022-01-10 07:09 | Outpatient (REF) | payer OTHER, SELFPAY ==
--- NOTE | ~2022-01-10 | XR_ITS ---
EXAMINATION: XR CHEST CLINICAL INFORMATION: R05.9 - Cough, unspecified COMPARISON: Chest radiographs 01/21/2020 TECHNIQUE: 2 views of the chest were obtained. FINDINGS: The lungs are clear. No airspace consolidation or groundglass opacity or effusion. The costophrenic sulci are well-defined. Heart size normal. The hilar and mediastinal contours are unremarkable. No acute bony abnormality. XR/XR chest 2V IMPRESSION: Lungs clear.
== END 2022-01-10 07:10 | disposition home or self-care (01) ==
LOC: HO.XRAY 07:09
PROVIDERS: PCP Internal Medicine; Visit Provider Internal Medicine
DX: R05.9 Cough, unspecified (principal)
CPT/HCPCS: 71046

== ENCOUNTER 2022-05-01 10:44 | Outpatient (REF) | payer OTHER, SELFPAY ==
[2022-05-01 10:59] LABS: MANUAL DIFF FLAG NO
[2022-05-01 12:04] LABS: Basophils Percent Auto 0.5 % (0-2); Eosinophils Absolute Auto 0.1 X10*3/uL (0.0-0.4); Eosinophils Percent Auto 1.4 % (0-4); Hematocrit 34.9 % (37.0-47.0); Hemoglobin 11.5 g/dl (12.0-16.0); Imm Gran Abs Auto 0.02 X10*3/uL (0.00-0.03); Imm Gran Pct Auto 0.3 % (0.0-0.4); Lymphocytes Absolute Auto 1.3 X10*3/uL (1.2-4.9); Lymphocytes Percent Auto 19.7 % (20-40); Mean Corpuscular Hemoglobin 30.2 pg (27.0-33.0); Mean Corpuscular Volume 91.6 fL (80.0-98.0); Mean Platelet Volume 11.6 fL (9.4-12.3); Monocytes Absolute Auto 0.5 X10*3/uL (0.1-1.2); Monocytes Percent Auto 7.4 % (2-11); Neutrophils Absolute Auto 4.5 x10*3/uL (2.0-8.3); Neutrophils Percent Auto 70.7 % (45-73); Platelet Count 177 X10*3/uL (160-400); Red Blood Count 3.81 X10*6/uL (4.20-5.50); Red Cell Distribution Width 12.4 % (11.0-16.0); White Blood Count 6.4 X10*3/uL (4.8-10.8)
[2022-05-01 12:13] LABS: Estimated Average Glucose 189 mg/dL; Hemoglobin A1c % 8.2 %
[2022-05-01 12:20] LABS: Appearance Urine Clear; Color Urine Yellow; Glucose Urine UA Negative (Negative); Leukocyte Esterase Urine Negative (Negative); Nitrite Urine Negative (Negative); Specific Gravity - Urine 1.015 (1.005-1.025); Urine Blood Negative (Negative); Urine Ketones Negative (Negative); Urine Protein Negative (Neg-Trace)
[2022-05-01 12:42] LABS: Alanine Aminotransferase 21 U/L (0-31); Alkaline Phosphatase 107 U/L (39-117); Anion Gap 12 (12-20); Aspartate Amino Transferase 23 U/L (5-31); Bilirubin Total 0.6 mg/dL (0.0-1.0); Blood Urea Nitrogen 35 mg/dL (9-16); Calcium 9.6 mg/dL (8.4-10.2); Carbon Dioxide 29 mmol/L (22-29); Chloride 105 mmol/L (96-108); Cholesterol 156 mg/dL; Estimated Glomerular Filt Rate 36; Glucose Fasting 146 mg/dL (60-99); HDL Cholesterol 40 mg/dL; LDL Cholesterol Calculated 96 mg/dl; Potassium 4.7 mmol/L (3.3-5.1); Sodium 141 mmol/L (135-145); Triglycerides 101 mg/dL; Uric Acid 7.8 mg/dL (2.4-5.7)
[2022-05-01 12:59] LABS: Free T4 (Free Thyroxine) 1.25 ng/dL (0.71-1.85); Thyroid Stimulating Hormone 2.38 uIU/mL (0.32-4.0); Vitamin D 25-OH Total 35.1 ng/mL (>30)
[2022-05-01 13:18] LABS: Creatinine Urine 105.45 mg/dL; Microalbum/Creatinine Ratio Ur 18.9 ug/mg cr
== END 2022-05-01 10:45 | disposition home or self-care (01) ==
LOC: HO.LAB 10:44
PROVIDERS: PCP Internal Medicine; Visit Provider Internal Medicine
DX: E03.9 Hypothyroidism, unspecified (principal); M10.9 Gout, unspecified; E78.00 Pure hypercholesterolemia, unspecified; E55.9 Vitamin D deficiency, unspecified; R30.0 Dysuria; E11.9 Type 2 diabetes mellitus without complications; I10 Essential (primary) hypertension
CPT/HCPCS: 36415; 80053; 80061; 81003; 82043; 82306; 83036; 84439; 84443; 84550; 85025

== ENCOUNTER 2022-08-03 07:32 | Outpatient (REF) | payer OTHER, SELFPAY ==
[2022-08-03 07:47] LABS: MANUAL DIFF FLAG NO
[2022-08-03 08:08] LABS: Basophils Percent Auto 0.5 % (0-2); Eosinophils Absolute Auto 0.1 X10*3/uL (0.0-0.4); Eosinophils Percent Auto 1.8 % (0-4); Hemoglobin 11.4 g/dl (12.0-16.0); Imm Gran Abs Auto 0.02 X10*3/uL (0.00-0.03); Imm Gran Pct Auto 0.3 % (0.0-0.4); Lymphocytes Absolute Auto 1.2 X10*3/uL (1.2-4.9); Lymphocytes Percent Auto 19.1 % (20-40); Mean Corpuscular HGB Conc 32.6 g/dl (31.0-35.0); Mean Corpuscular Hemoglobin 30.6 pg (27.0-33.0); Mean Corpuscular Volume 93.8 fL (80.0-98.0); Mean Platelet Volume 11.3 fL (9.4-12.3); Monocytes Absolute Auto 0.5 X10*3/uL (0.1-1.2); Monocytes Percent Auto 7.7 % (2-11); Neutrophils Absolute Auto 4.3 x10*3/uL (2.0-8.3); Neutrophils Percent Auto 70.6 % (45-73); Platelet Count 162 X10*3/uL (160-400); Red Blood Count 3.73 X10*6/uL (4.20-5.50); Red Cell Distribution Width 12.6 % (11.0-16.0); White Blood Count 6.1 X10*3/uL (4.8-10.8)
[2022-08-03 08:32] LABS: Uric Acid 8.3 mg/dL (2.4-5.7)
[2022-08-03 09:04] LABS: Anion Gap 11 (12-20)
[2022-08-03 09:07] LABS: Blood Urea Nitrogen 35 mg/dL (9-16); Calcium 9.2 mg/dL (8.4-10.2); Carbon Dioxide 27 mmol/L (22-29); Chloride 109 mmol/L (96-108); Estimated Glomerular Filt Rate 34; Sodium 142 mmol/L (135-145)
[2022-08-03 09:12] LABS: Appearance Urine Clear; Color Urine Yellow; Glucose Urine UA Negative (Negative); Leukocyte Esterase Urine Negative (Negative); Nitrite Urine Negative (Negative); PH 5.5 (5.0-9.0); Specific Gravity - Urine 1.015 (1.005-1.025); Urine Blood Negative (Negative); Urine Ketones Negative (Negative); Urine Protein Negative (Neg-Trace)
[2022-08-03 10:14] LABS: Creatinine Urine 86.68 mg/dL
[2022-08-07 14:23] LABS: Calcium (PTHI) 9.3 mg/dL (8.6-10.4); PTHI 158 pg/mL (16-77)
== END 2022-08-03 07:33 | disposition home or self-care (01) ==
LOC: HO.LAB 07:32
PROVIDERS: PCP Internal Medicine; Visit Provider Physician Assistant
DX: N18.32 Chronic kidney disease, stage 3b (principal)
CPT/HCPCS: 36415; 80051; 81003; 82043; 82310; 82565; 83970; 84520; 84550; 85025

== ENCOUNTER 2022-10-13 09:34 | Outpatient (AMB) | payer OTHER, SELFPAY ==
--- NOTE | 2022-10-13 09:37 | MHC.PC.OV ---
Vital Signs 10/13/22 09:38 Height 5 ft 6 in Weight 281 lb 4 oz BMI 45.4 BP 122/80 Blood Pressure Location Lt brachial Position Sitting Pulse 68 Pulse Source Pulse Oximeter Pulse Oximetry (%) 99 Oxygen Delivery Method Room Air Intake Visit Reasons: HTN,HLD,DM Extruder Operator Multiple Required: No Accompanied by: Self / Same As Patient Allergies glyburide Adverse Reaction (Intermediate, Verified 10/13/22 10:27) weight gain pioglitazone Adverse Reaction (Intermediate, Verified 10/13/22 10:27) weight gain Medication List - Last Reconciled 10/13/22 by Fab Yeager MD amlodipine 2.5 mg PO DAILY 90 days atenolol 100 mg (2 x 50 mg) PO DAILY 90 days atorvastatin 20 mg PO DAILY blood sugar diagnostic As directed blood sugar diagnostic (FreeStyle Lite Strips) As directed 4 times a day cholecalciferol (vitamin D3) 50 mcg PO DAILY dulaglutide (Trulicity) 3 mg (0.5 mL) subcut QWEEK 28 days flash glucose scanning reader (1CloudStarStyle Bj 14 Day [place]) As directed flash glucose sensor (FreeStyle Bj 14 Day Sensor kit) Once every 14 days lancets (FreeStyle Lancets) 4 times a day Lantus Solostar U-100 Insulin (insulin glargine) 20 units (0.2 mL) subcut BEDTIME 30 days NS levothyroxine 88 mcg PO DAILY lisinopril-hydrochlorothiazide 20-25 mg 1 tab PO DAILY pen needle, diabetic (BD Josefina 2nd Gen Pen Needle) four times per day as directed pen needle, diabetic (BD Ultra-Fine Micro Pen Needle) 1 ea subcut DAILY Tobacco use date assessed: 10/13/22 Fall risk assessment: No Falls in past year Last assessed Fall Risk: 10/13/22 Dental Screening Dental Screen Date: 10/13/22 Did you have a dental visit in the last 12 months?: No Did you have a dental problem in the last 6 months where you did not have access to dental care?: No Was dental information given to patient?: No HPI HTN,HLD,DM HPI Details Patient comes in today for her follow up visit States that she feels okay She denies any headaches or dizziness Denies any chest pains, no SOB No nausea/vomiting, no abdominal pain No change in bowel habits noted States that she will need her Trulicity and Lantus Rx refilled Has no follow up labs done recently but did get some labs done for nephrology a couple of months ago [facility] Medical History Acquired hypothyroidism Benign essential hypertension Body mass index (BMI) of 40.0 to 49.9 Chronic kidney disease (CKD), stage III (moderate) Chronic kidney disease, stage 4 (severe) Exertional dyspnea Oscar's disease HLD (hyperlipidemia) HTN (hypertension) Morbid obesity with BMI of 40.0-44.9, adult Morbid obesity with BMI of 45.0-49.9, adult Nonalcoholic hepatosteatosis Obesity, unspecified Pure hypercholesterolemia Type 2 diabetes mellitus with diabetic chronic kidney disease Vitamin D deficiency Surgical History History of laparoscopy Family History Father CVD (cardiovascular disease) Stroke Hypertension Mother Hypertension Stroke Diabetes Cancer Brother Cancer Social History Household Members: Children Household Members Other:: son Housing: House Alcohol intake: never Patient Tobacco Use Status: Never used Tobacco e-Cigarette/Vaping Use: Never Used Second Hand Smoke Exposure: Yes service: No Current occupational status: employed Cognitive needs: No Hearing needs: No Vision needs: Yes Questionnaire PHQ-9 Over the last 2 weeks, how often have you been bothered by any of the following problems? 1. Little interest or pleasure in doing things: not at all 2. Feeling down, depressed, or hopeless: not at all 3. Trouble falling or staying asleep, or sleeping too much: not at all 4. Feeling tired or having little energy: not at all 5. Poor appetite or overeating: not at all 6. Feeling bad about yourself - or that you are a failure or have let yourself or your family down: not at all 7. Trouble concentrating on things, such as reading the newspaper or watching television: not at all 8. Moving or speaking so slowly that other people could have noticed. Or the opposite - being so fidgety or restless that you have been moving around a lot more than usual: not at all 9. Thoughts that you would be better off or of hurting yourself in some way: not at all Total score: 0 Depression Screening Interpretation: Negative 92264 - PHQ-9 Billing: Yes Source: Developed by Drs. Nato Romero, Paola Burnett, Shiraz Romo and colleagues, with an educational daksha from [employer]. Thrive Questionnaire Date Thrive assessed: 10/13/22 I am a: Patient What is your living situation today?: I have a steady place to live Within the past 12 months, did the food you bought not last and you didn't have the money to get more?: Never true Within the past 12 months, did you worry whether your food would run out before you got money to buy more?: Never true Do you have trouble paying for medicines?: No Do you have trouble getting transportation to medical appointments?: No Do you have trouble paying your heating and electricity bill?: No Do you have trouble taking care of your child, family member or friend?: No Do you have trouble with day-to-day activities such as bathing, preparing meals, shopping, managing finances, etc.?: No Are you currently unemployed and looking for a job?: No Are you interested in more education?: No Please select the resources that you would like help with: None Currently or been in a relationship where the following occur: no concerns reported AUDIT C Alcohol Use Questionnaire (AUDIT-C) 1. How often do you have a drink containing alcohol?: Never 3. How often do you have six or more drinks on one occasion?: Never Total Score: 0 Score Reviewed/Action Taken: Yes SILVESTRE-7 AMB Questionnaire SILVESTRE-7 Date SILVESTRE - 7 assessed: 10/13/22 Feeling nervous, anxious, or on edge: 0 = Not at all Not being able to stop or control worryin = Not at all Worrying too much about different things: 0 = Not at all Trouble relaxin = Not at all Being so restless that it is hard to sit still: 0 = Not at all Becoming easily annoyed or irritable: 0 = Not at all Feeling afraid as if something awful might happen: 0 = Not at all Total SILVESTRE-7 score (0-4 normal; 5-9 mild; 10-14 moderate; 15-21 severe): 0 Source: Developed by Drs. Nato Romero, Paola Burnett, Shiraz Romo and colleagues, with an educational daksha from [employer]. Review of Systems Const Denies chills, Denies fatigue, Denies fever(s) and Denies headache(s) ENT Denies dysphagia, Denies dizziness, Denies otalgia, Denies headache(s), Reports hearing loss (left ear), Denies nasal congestion, Denies odynophagia and Denies sore throat Card Denies chest pain, Denies palpitations and Denies dyspnea Resp Denies cough and Denies dyspnea GI Denies abdominal pain, Denies constipation, Denies dysphagia, Denies heartburn, Denies diarrhea, Denies nausea, Denies odynophagia and Denies vomiting Denies difficulty voiding, Denies dysuria, Denies urinary incontinence and Denies urinary urgency Skin/Breast Denies rash Neuro Denies dizziness and Denies headache(s) Endo Denies fatigue and Denies palpitations Physical exam (Primary Care) Vital Signs: Last Vital Signs Pulse 68 10/13/22 09:38 BP 122/80 10/13/22 09:38 Pulse Ox 99 10/13/22 09:38 Oxygen Delivery Method Room Air 10/13/22 09:38 BMI result Body Mass Index 45.4 Tobacco/Smoking Status: Tobacco use Status Tobacco use date assessed 10/13/22 10/13/22 09:47 Patient Tobacco Use Status Never used Tobacco 10/13/22 09:47 e-Cigarette/Vaping Use Never Used 10/13/22 09:47 PHQ-9: PHQ-9 Score PHQ-9: Total score 0 10/13/22 10:16 Depression Screening Interpretation: Negative Thrive Assessment: Date of Thrive Assessment Date Thrive assessed 10/13/22 10/13/22 09:47 Currently or been in a relationship where the following occur: no concerns reported Const General: no acute distress and alert HENMT Other: (+) hearing aids Ears: TM's normal bilaterally and EAC's normal Throat: Yes posterior oropharynx normal and Yes tonsils normal (no TP congestion) Neck Neck: Yes no lymphadenopathy and Yes supple Resp Auscultation: clear to auscultation bilaterally, no rales and no wheezes Cardio Rate: regular rate Rhythm: regular rhythm Heart sounds: no murmurs GI Palpation (GI): Soft to palpation and nontender Auscultation: normal bowel sounds Skin Rashes: no rashes Extrem General: Yes no clubbing, cyanosis or edema Results AMB Hemoglobin A1c AMB Hemoglobin A1c 7.7 % Last Edit by Yolis Aguirre on 10/13/22 10:17 Results Reviewed Results Reviewed: Laboratory Last Values Hgb A1c (Clinic) 7.7 % (4.0-6.0) H 10/13/22 10:01 Laboratory Tests 05/01/22 08/03/22 08/03/22 10:57 07:46 07:46 WBC 6.1 Hgb 11.4 L Hct 35.0 L Plt Count 162 Sodium 142 Potassium 5.0 Creatinine 1.55 H Estimated GFR 34 Uric Acid 8.3 H Triglycerides 101 Cholesterol 156 LDL Cholesterol, Calc 96 HDL Cholesterol 40 25-OH Vitamin D Total 35.1 TSH 2.38 Free T4 1.25 PTH Intact Calcium (PTH Intact) 08/03/22 07:46 WBC Hgb Hct Plt Count Sodium Potassium Creatinine Estimated GFR Uric Acid Triglycerides Cholesterol LDL Cholesterol, Calc HDL Cholesterol 25-OH Vitamin D Total TSH Free T4 PTH Intact 158 H Calcium (PTH Intact) 9.3 Assessment and Plan Assessment & Plan (1) Type 2 diabetes mellitus with diabetic chronic kidney disease: Code(s): E11.22 - Type 2 diabetes mellitus with diabetic chronic kidney disease Qualifiers: Diabetes mellitus skilled nursing insulin use: with skilled nursing use Chronic kidney disease stage: stage 4 (severe) Qualified Code(s): E11.22 - Type 2 diabetes mellitus with diabetic chronic kidney disease; N18.4 - Chronic kidney disease, stage 4 (severe); Z79.4 - terminal block assembler (current) use of insulin Plan: In-office HgbA1c done today is at 7.7% (HgbA1c was at 8.2% a few months ago in April 2022) - goal is < 7.0% Reinforced diabetic diet Continue Lantus Solostar 20 units Q HS; will increase her Trulicity now to 4.5 mg SQ once a week to try to max out her current Rx for now before starting on any additional Rx if necessary Patient used to see endocrinology but has not been back to see them since Sulma Terry left the practice a couple of years ago; will refer her back again to endocrinology for further management (2) Chronic kidney disease (CKD), stage III (moderate): Code(s): N18.30 - Chronic kidney disease, stage 3 unspecified Qualifiers: Chronic kidney disease stage 3 subtype: stage 3b (GFR 30-44) Qualified Code(s): N18.32 - Chronic kidney disease, stage 3b Plan: Results of her labs done a couple of months ago reviewed and discussed with patient Reinforced again that the goal here is to slow down the progression of her CKD Based on her recent labs, she is still somewhere between stage 3b and stage 4 and her renal function has been stable lately Emphasized again the importance of tight BP control and strict glycemic control in light of her advanced CKD Follow up with nephrology (Dr. Newton Barker) as scheduled (3) Benign essential hypertension: Code(s): I10 - Essential (primary) hypertension Plan: Reinforced low sodium diet - goal is systolic BP of 120 mm or less, in light of her advanced CKD Continue Linisopril-HCT 20-25 mg QD, Amlodipine 2.5 mg QD and Atenolol 100 mg QD (4) Pure hypercholesterolemia: Code(s): E78.00 - Pure hypercholesterolemia, unspecified Plan: Her cholesterol numbers last checked in April 2022 were at goal Reinforced low cholesterol diet Continue Atorvastatin 20 mg QD Will recheck her fasting lipids and labs in 4 months for follow up (5) Acquired hypothyroidism: Code(s): E03.9 - Hypothyroidism, unspecified Plan: Previous tests included (+) TPO Ab and Thyroglobulin Ab, consistent with Oscar's thyroiditis TFTs done a few months ago came back normal Continue Levothyroxine 88 mcg QD Will recheck TFTs in 4 months for follow up (6) Vitamin D deficiency: Code(s): E55.9 - Vitamin D deficiency, unspecified Plan: Continue Vitamin D3 2000 units QD Will recheck Vitamin D level in 4 months for follow (7) Morbid obesity with BMI of 40.0-44.9, adult: Code(s): E66.01 - Morbid (severe) obesity due to excess calories; Z68.41 - Body mass index [BMI] 40.0-44.9, adult Plan: Reinforced diet/exercise as tolerated/lose weight Plan Follow up in 4 months Orders: Orders Complete Blood Count Auto Diff 4 Months I10 - Essential (primary) hypertension Comprehensive [place]. Panel Fast 4 Months E78.00 - Pure hypercholesterolemia, unspecified Lipid Panel 4 Months E78.00 - Pure hypercholesterolemia, unspecified Hemoglobin A1c 4 Months E11.9 - Type 2 diabetes mellitus without complications Microalbumin, Random (w Creat) 4 Months E11.9 - Type 2 diabetes mellitus without complications AMB Hemoglobin A1c Today E11.22 - Type 2 diabetes mellitus with diabetic chronic kidney disease Thyroid Stimulating Hormone 4 Months E03.9 - Hypothyroidism, unspecified Free T4 (Free Thyroxine) 4 Months E03.9 - Hypothyroidism, unspecified UA CC w/rflx Micro + Cult 4 Months R30.0 - Dysuria Vitamin D 25-OH Total 4 Months E55.9 - Vitamin D deficiency, unspecified Vitamin B12 and Folate 4 Months E53.8 - Deficiency of other specified B group vitamins Referrals Endocrinology Referral E11.22 - Type 2 diabetes mellitus with diabetic chronic kidney disease, N18.4 - Chronic kidney disease, stage 4 (severe) Medications: Changed From dulaglutide (Trulicity) 3 mg (0.5 mL) subcut QWEEK 28 days 2 mL 6RF To dulaglutide 4.5 mg (0.5 mL) subcut QWEEK 2 mL 6RF 28 days Refilled Lantus Solostar U-100 Insulin (insulin glargine) 20 units (0.2 mL) subcut BEDTIME 15 mL 3RF 30 days NS E11.22 - Type 2 diabetes mellitus with diabetic chronic kidney disease, N18.4 - Chronic kidney disease, stage 4 (severe), Z79.4 - terminal block assembler (current) use of insulin Coding Level of Care Code Est Pt Level 4 (78394) Diagnoses Type 2 diabetes mellitus with diabetic chronic kidney disease E11.; N18.4; Z79.4 Diabetes mellitus joint terminal attack controller insulin use: with skilled nursing use Chronic kidney disease stage: stage 4 (severe) Chronic kidney disease (CKD), stage III (moderate) N18.32 Chronic kidney disease stage 3 subtype: stage 3b (GFR 30-44) Benign essential hypertension I10 Pure hypercholesterolemia E78.00 Acquired hypothyroidism E03.9 Vitamin D deficiency E55.9 Morbid obesity with BMI of 40.0-44.9, adult E66.01; Z68.41
[2022-10-13 09:38] VITALS: BP 122/80; PULSE 68; O2SAT 99; BMI 45.4
== END 2022-10-13 10:42 | disposition home or self-care (01) ==
PROVIDERS: PCP Internal Medicine; Visit Provider Internal Medicine
DX: E11.22 Type 2 diabetes mellitus with diabetic chronic kidney disease (principal); N18.4 Chronic kidney disease, stage 4 (severe); Z79.4 Long term (current) use of insulin; N18.32 Chronic kidney disease, stage 3b; I12.9 Hypertensive chronic kidney disease with stage 1 through stage 4 chronic kidney disease, or unspecified chronic kidney disease; E78.00 Pure hypercholesterolemia, unspecified; E03.9 Hypothyroidism, unspecified; E55.9 Vitamin D deficiency, unspecified; E66.01 Morbid (severe) obesity due to excess calories; Z68.41 Body mass index [BMI] 40.0-44.9, adult
CPT/HCPCS: 83036; 99214